=== PATIENT | male | born 1965 | race Caucasian/White ===

== ENCOUNTER 2019-11-09 10:51 | Emergency (ER) | payer BC, SELFPAY ==
--- NOTE | ~2019-11-09 | XR_ITS ---
EXAMINATION: XR toe 1st RT min 2V INDICATION: Right great toe infection TECHNIQUE: Three views of the right first toe are obtained. COMPARISON: None available FINDINGS: There is orthopedic hardware spanning the metatarsophalangeal joint. 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 No definite acute osseous abnormality is iden tified. Soft tissue swelling is noted. There is blunting of the tuft of the second distal phalanx whi ch could reflect prior injury or surgical change. IMPRESSION: 1. Surgical changes of the first metatarsophalangeal joint without definite evidence of acute osseous abnormality. Reviewed, dictated and finalized at location A. IMPRESSION: 1. Surgical changes of the first metatarsophalangeal joint without definite steve dence of acute osseous abnormality.
[2019-11-09 11:08] VITALS: BP 147/85; PULSE 87; RESP 16; TEMP 36.6; O2SAT 99
--- NOTE | 2019-11-09 12:06 | ED.GENADULT ---
HPI - General Adult General Chief complaint: Extremity Injury, Lower <Triston Mann PA-C - Last Filed: 11/09/19 12:29> Stated complaint: rt foot swollen, discolored and numb after surg <Triston Mann PA-C - Last Filed: 11/09/19 12:29> Time Seen by Provider: 11/09/19 11:37 <Triston Mann PA-C - Last Filed: 11/09/19 12:29> Source: patient <Triston Mann PA-C - Last Filed: 11/09/19 12:29> Mode of arrival: ambulatory <Triston Mann PA-C - Last Filed: 11/09/19 12:29> Limitations: no limitations <Triston Mann PA-C - Last Filed: 11/09/19 12:29> History of Present Illness HPI narrative: Patient is a 54-year-old male who presents with right great toe pain patient has chronic pain noted due to several surgeries of the toe that were done at an outside state patient notes he is now living here and would like referral for specialist patient denies new injury or trauma does note that he has a small red tender area along the medial nail margin where he is cut the nail too short patient denies fever chills URI symptoms or other complaints and presents per private vehicle in no distress <Triston Mann PA-C - Last Filed: 11/09/19 12:29> Related Data Home medications: Home Medications Medication Instructions Recorded Confirmed sertraline 100 mg PO DAILY 11/09/19 <Triston Mann PA-C - Last Filed: 11/09/19 12:29> Allergies/adverse reactions: Allergies Allergy/AdvReac Type Severity Reaction Status Date / Time SHELLFISH Allergy Mild Hives Uncoded 11/09/19 11:10 <Triston Mann PA-C - Last Filed: 11/09/19 12:29> Review of Systems Review of Systems: All systems reviewed & are unremarkable except as noted in HPI and below <Triston Mann PA-C - Last Filed: 11/09/19 12:29> [facility] Surgical History Surgical History: Surgical History History of orthopedic surgery <Triston Mann PA-C - Last Filed: 11/09/19 12:29> Social History Social History: Social History (Updated 11/09/19 @ 12:07 by Triston Mann PA-C) Smoking status: Current every day smoker Gender identity (if verbalized by the patient): Male <Triston Mann PA-C - Last Filed: 11/09/19 12:29> Exam Narrative: Exam Narrative: GENERAL: Well-appearing, well-nourished, and in no acute distress. HEAD: Normocephalic, atraumatic. EYES: PERRLA and EOMI. ENT: Nares clear, no rhinorrhea or epistaxis. Mucous membranes moist. EXTREMITIES: Normal range of motion. No edema. Right great toe with intact surgical scars no erythema warmth to touch slight swelling and tenderness along the medial nail margin no lymphangitic streaking or other abnormalities noted SKIN: Warm, dry, no rash. NEURO: No focal deficits. Alert and oriented x3. Neurovascularly intact PSYCH: Normal mood and affect. <Triston Mann PA-C - Last Filed: 11/09/19 12:29> Course Course Emergency Course: Patient in the room in no distress advised to follow-up with podiatry given referrals <Triston Mann PA-C - Last Filed: 11/09/19 12:29> Vital Signs Vital signs: Vital Signs Temperature 98 F 11/09/19 11:08 Pulse Rate 87 11/09/19 11:08 Respiratory Rate 16 11/09/19 11:08 Blood Pressure 147/85 H 11/09/19 11:08 Pulse Oximetry 99 11/09/19 11:08 Temperature 98 F 11/09/19 11:08 Pulse Rate 86 11/09/19 12:33 Respiratory Rate 18 11/09/19 12:33 Blood Pressure 153/76 H 11/09/19 12:33 Pulse Oximetry 99 11/09/19 12:33 <Triston Mann PA-C - Last Filed: 11/09/19 12:29> Vital Signs Temperature 98 F 11/09/19 11:08 Pulse Rate 87 11/09/19 11:08 Respiratory Rate 16 11/09/19 11:08 Blood Pressure 147/85 H 11/09/19 11:08 Pulse Oximetry 99 11/09/19 11:08 Temperature 98 F 11/09/19 11:08 Pulse Rate 86 11/09/19 12:33 Respiratory Rate 18 11/09/19 12:33 Blood Pressure 153/76 H
[2019-11-09 12:33] VITALS: BP 153/76; PULSE 86; RESP 18; O2SAT 99
== END 2019-11-09 12:34 | disposition home or self-care (01) ==
PROVIDERS: Emergency Provider Emergency Medicine
DX: L03.031 Cellulitis of right toe (principal); F17.200 Nicotine dependence, unspecified, uncomplicated
CPT/HCPCS: 73660; 99283